=== PATIENT | male | born 1965 | race Caucasian/White ===

== ENCOUNTER 2020-06-21 08:28 | Outpatient (RCR) | payer OTHER, SELFPAY | END 2020-06-21 23:59 | LOC: IMMUN 08:28 | PROVIDERS: PCP Student in an Organized Health Care Education/Training Program; Visit Provider Family Medicine | DX: Z23 Encounter for immunization (principal) | CPT/HCPCS: 0011A; 0012A ==

== ENCOUNTER 2020-12-05 15:20 | Emergency (ER) | payer OTHER, SELFPAY ==
[2020-12-05 15:21] VITALS: BP 108/71; PULSE 87; RESP 18; TEMP 36.2; O2SAT 97; BMI 44.4
--- NOTE | 2020-12-05 16:02 | EX.ED.VIS.EY ---
HPI History of Present Illness Chief Complaint: Eye Problem Informant: patient Onset/Context/Timing Location: Left Eye Onset: Days (Injury occurred 2 days ago) Context: Sudden Onset Timing: Continuous Current Severity: Moderate Maximum Severity: Severe Worsened by: Light Relieved by: Nothing Associated Symptoms Associated Symptoms - Eyes: Crusting, Drainage, Eyelid swelling, Foreign body sensation, Matting, Photophobia and Redness Visual Changes: left: Blurred vision History of injury: Yes, Foreign body and - (Metal pounding on metal, patient working under vehicle) Visual correction: Glasses Narrative Narrative: Patient is a 55-year-old male who was working on a car. He has history of metal pounding on metal. He felt a piece of brush/foreign body went into his eye 2 days ago. His eye pain is gotten worse. He does report matting of his eyelashes and drainage from his eyes. His vision is cloudy but improves with blinking. He does complain of irritation nasal portion of the eye. He denies loss of vision or double vision. He denies fever, chills night sweats. He denies facial swelling. He denies pain with movement of his eyes. He does report light sensitivity. He does have history of diabetes and hypercholesterolemia. Prior similar symptoms: No Recent Illness/Hospitalization: No [facility] Medical History Diabetes mellitus Hyperlipidemia Home Medications atorvastatin 40 mg PO DAILY 12/05/20 [History Last Taken Unknown] ciprofloxacin HCl 1 drp LEFT EYE Q2H 2 Days ml 12/05/20 [Rx Last Taken Unknown] metformin 1,000 mg PO BID 12/05/20 [History Last Taken Unknown] semaglutide [Ozempic] 4 mg SUBCUT QWEEK 12/05/20 [History Last Taken Unknown] sertraline 100 mg PO DAILY 12/05/20 [History Last Taken Unknown] tamsulosin 0.4 mg PO DAILY 12/05/20 [History Last Taken Unknown] Allergy/AdvReac Type Severity Reaction Status Date / Time No Known Allergies Allergy Verified 12/05/20 15:22 Surgical History S/P carpal tunnel release Social History (Updated 12/05/20 @ 16:[address] Ozzie Omalley MD) Smoking Status: Never smoker alcohol intake: current alcohol intake frequency: holidays/special occasions only substance use type: does not use ROS ROS ED Constitutional Constitutional ED: Denies chills, fever(s), subjective or sweats Eyes Eyes: Reports blurry vision and change in vision; Denies other ENT ENT ED: Denies ear pain, rhinorrhea or sore throat Gastrointestinal Gastrointestinal: Denies nausea or vomiting Genitourinary Genitourinary ED: Denies urinary frequency Musculoskeletal Musculoskeletal: Denies back pain or neck pain Integumentary Denies rash Neurologic Neurologic: Denies headache(s) Endocrine Endocrinology: Denies polydipsia, polyphagia or polyuria Hematologic/Lymphatic Hematologic/Lymphatic: Denies easy bleeding or easy bruising EXAM Physical Exam Const Vital Signs: 12/05/20 15:21 Temperature 97.1 F L Temperature Source Temporal Pulse Rate 87 Respiratory Rate 18 Blood Pressure 108/71 Blood Pressure Mean 83 Pulse Ox 97 Oxygen Delivery Method Room Air Positive well nourished, well developed and obese General Appearance ED: well developed Nutritional Appearance: obese HEENT atraumatic; Negative for tenderness Nose: external nose normal and nares normal Eyes General Eye ED: Yes normal light reflex; Negative for enophthalmos, exophthalmos, proptosis, pale conjunctiva or scleral icterus Visual Field: No peripheral vision loss, No central vision loss and No left visual field cut Alignment: alignment normal Periorbital: periorbital findings normal Eyelid: eyelids abnormal right upper eyelid (There is swelling of the upper and lower lid. Lower is more swollen.) and right lower eyelid Conjunctiva: conjunctiva abnormal left Details: injection Sclera: sclera normal Pupil: PERRL and accommodation reflex normal EOM: Negative for nystagmus Neck no lymphadenopathy, supple and no JVD General: tenderness Resp normal respiratory effort and clear to auscultation bilaterally Cardio regular rate, regular rhythm, S1 normal heart sound, S2 normal heart sound and no murmurs Neuro oriented x3 and CN's II-XII intact bilaterally Sensorium / Orientation: alert Psych Psych Narrative: Mood and affect are normal Skin no wounds Lesions: no lesions Rashes: no rashes MDM MDM MDM Narrative Medical decision making narrative: No obvious foreign body was noted with direct ophthalmoscope visualization. With history of metal pounding on metal need to evaluate for penetrating wound and retained foreign body. Orbital x-rays were obtained. I was anesthetized tetracaine and stained with foreseen. Will perform slit-lamp examination. Tetanus will be updated if needed. Patient I was anesthetized tetracaine and stained with foreseen. Use of slit lamp reveals rust ring/small metallic foreign body cornea left eye 3 to 4 mm from the limbal border at 5:00. This was easily removed using ophthalmic bur with direct visualization using the slit lamp. Patient tolerated procedure well. Radiography Diagnostic Testing: Orbital x-rays reveal no evidence of foreign body. Procedures Other Procedures Procedure(s): Removal of metallic foreign body with rust ring in total using ophthalmic bur under direct visualization with slit lamp Discharge Plan Triage Chief Complaint: Eye Problem ED Provider: Ozzie Omalley Dx/Rx/DC Orders Clinical Impression: Foreign body in cornea, left eye, initial encounter, Acute conjunctivitis of left eye Instructions: ED Conjunctivitis, Nonspecific, ED Corneal Foreign Body, Removed Prescriptions: New ciprofloxacin HCl 0.3 % drops 1 drp LEFT EYE Q2H 2 Days RF: 0 No Action atorvastatin 40 mg tablet 40 mg PO DAILY RF: 0 sertraline 100 mg tablet 100 mg PO DAILY RF: 0 tamsulosin 0.4 mg capsule 0.4 mg PO DAILY RF: 0 metformin 500 mg tablet extended release 24 hr 1,000 mg PO BID RF: 0 Ozempic 1 mg/dose (4 mg/3 mL) pen injector 4 mg SUBCUT QWEEK RF: 0 Primary Care Provider: Dread Castle Referrals: Evgeny Gonzalez MD [STAFF PHYSICIAN] - 1 Day for another exam (Patient with metallic foreign body. Foreign body and rust ring removed in total. Patient has conjunctivitis. Placed on ophthalmic drops will need seen in 24 to 48 hours) Dread Castle DO [Primary Care Provider] - Disposition Disposition: Home, Self Care
[2020-12-05] MEDS: Fluorescein 1 MG STRIP 1 STRIP OPHTHALMIC (16:11)
--- NOTE | 2020-12-05 16:25 | RAD_ITS ---
STUDY: X-RAY - ORBITS REASON FOR EXAM: Male, 55 years old. Eye pain, metal pounding on metal TECHNIQUE: 3 view(s) of the orbits were obtained. COMPARISON: None. FINDINGS: Normal bilateral orbits without a metallic orbital foreign body. Normal visualized facial bones. Normal paranasal sinuses. Radiopaque dental fillings noted. The soft tissue structures are unremarkable. RAD/Orbits for Foreign Body IMPRESSION: No demonstrated metallic orbital foreign body. The patient is cleared for an MRI examination. Electronically Signed: Capo Parsons MD at 16:40 EDT , Service support ,
[2020-12-05] MEDS: Tetracaine 0.5% Ophthalmic Bottle OPHTHALMIC (16:30)
[2020-12-05 17:37] VITALS: BP 129/84; PULSE 78; RESP 16; O2SAT 98
== END 2020-12-05 17:38 | disposition home or self-care (01) ==
PROVIDERS: Emergency Provider Emergency Medicine; PCP Student in an Organized Health Care Education/Training Program
DX: T15.02XA Foreign body in cornea, left eye, initial encounter (principal); H10.32 Unspecified acute conjunctivitis, left eye; X58.XXXA Exposure to other specified factors, initial encounter; Y93.9 Activity, unspecified; Y92.9 Unspecified place or not applicable; Y99.9 Unspecified external cause status; E11.9 Type 2 diabetes mellitus without complications; E78.00 Pure hypercholesterolemia, unspecified; E78.5 Hyperlipidemia, unspecified; E66.9 Obesity, unspecified; Z79.84 Long term (current) use of oral hypoglycemic drugs; Z79.899 Other long term (current) drug therapy
CPT/HCPCS: 70030; 99283

== ENCOUNTER → 2020-12-11 08:31 | Outpatient (CLI) | payer OTHER, SELFPAY ==
[2020-12-05 15:21] VITALS: BMI 44.4
--- NOTE | 2020-12-10 | LES_PTH ---
PATIENT: KAT POWELL LOC: [facility] U#:[id number] AGE/SX: 60/M ROOM: RE12/11/[address]: Dr. Kal Caballero MD : 1965 BED: DIS: SPEC #: [id number] RECD: 12/10/20 17:50 STATUS: EAN REMohit #: [id number] ALIZA: 12/10/20 00:[address]: Kal Caballero DEPT: SURGICAL PATHOLOGY RECD BY: Sekou Reyes ENTERED: 12/11/20 12:01 SP TYPE: Lesion OTHR DR: Dr. Dread Castle, DO Tissues: Skin of eyelid, NOS Procedures: Surgery Specimen Level IV HEADER OPERATION: Lesion removal left upper lid PRE-OP DIAGNOSIS: Present x2 years, enlarging TISSUE SUBMITTED: Lesion removal left upper lid MICROSCOPIC DIAGNOSIS Lesion of left upper eyelid, biopsy: Consistent with seborrheic keratosis, mildly inflamed. AM:richelle 12/12/2020 MICROSCOPIC DESCRIPTION Slides are reviewed. GROSS DESCRIPTION Received in fixative is one container labeled with the patient's name and designated left upper lid. The specimen consists of an irregular fragment of smith tissue measuring 0.1 x <0.1 x <0.1 cm. The specimen is totally submitted in one cassette. / AM:richelle 12/11/20 TC:5 CPT: 17535
== END ==
PROVIDERS: PCP Student in an Organized Health Care Education/Training Program; Referring Provider Ophthalmology; Visit Provider Ophthalmology
DX: L82.0 Inflamed seborrheic keratosis (principal)
CPT/HCPCS: 88305

== ENCOUNTER 2021-07-29 10:44 | Emergency (ER) | payer OTHER, SELFPAY ==
[2021-07-29 10:45] VITALS: BP 123/78; PULSE 82; RESP 18; TEMP 36.8; O2SAT 97; BMI 45.1
--- NOTE | 2021-07-29 11:43 | EDS_ITS ---
HPI History of Present Illness Chief Complaint: Laceration Detail of Chief Complaint: Forehead laceration Informant: patient and spouse/S.O. Onset/Context/Timing Onset: Hours Mechanism/Context: Blunt Injury Location: Forehead midline near hairline Current Severity: Mild Maximum Severity: Mild Worsened by: Blunt trauma Relieved by: Nothing Associated Symptoms Associated Symptoms: Negative for Parasthesias, Weakness, Loss of function, Inability to ambulate, Loss of consciousness and Amnesia Narrative Narrative: Patient is a 56-year-old male who walked into a trailer hitch. He sustained laceration to his forehead. Laceration is 2.1 cm in length. There is minimal bleeding. There is no palpable depression. Patient denies loss of conscious. He is not amnestic. Denies ringing in ears decreased hearing. Denies trouble with vision. He denies any paresthesia, anesthesia or motor weakness upper lower extremity. He denies neck pain. Tetanus Immunization: <5 years Prior similar symptoms: Yes Recent Illness/Hospitalization: No PFSH PFSH Medical History Diabetes mellitus Hyperlipidemia Home Medications atorvastatin 40 mg PO DAILY 12/05/20 [History Last Taken Unknown] ciprofloxacin HCl 1 drp LEFT EYE Q2H 2 Days ml 12/05/20 [Rx Last Taken Unknown] metformin 1,000 mg PO BID 12/05/20 [History Last Taken Unknown] semaglutide [Ozempic] 4 mg SUBCUT QWEEK 12/05/20 [History Last Taken Unknown] sertraline 100 mg PO DAILY 12/05/20 [History Last Taken Unknown] tamsulosin 0.4 mg PO DAILY 12/05/20 [History Last Taken Unknown] Allergy/AdvReac Type Severity Reaction Status Date / Time No Known Allergies Allergy Verified 07/29/21 10:57 Surgical History S/P carpal tunnel release Social History (Updated 07/29/21 @ 11:[address] Ozzie Omalley MD) household members: spouse Smoking Status: Never smoker alcohol intake: current alcohol intake frequency: holidays/special occasions only substance use type: does not use ROS ROS ED Eyes Eyes: Denies blurry vision or change in vision ENT ENT ED: Denies ear pain, rhinorrhea or sore throat Gastrointestinal Gastrointestinal: Denies nausea or vomiting Musculoskeletal Musculoskeletal: Denies arthralgias, back pain, myalgias or neck pain Integumentary Reports other Details: Forehead laceration ; Denies abscess or rash Neurologic Neurologic: Denies headache(s) or paresthesias Hematologic/Lymphatic Hematologic/Lymphatic: Denies easy bleeding or easy bruising EXAM Physical Exam Const Vital Signs: 07/29/21 10:45 Temperature 98.2 F Temperature Source Temporal Pulse Rate 82 Respiratory Rate 18 Blood Pressure 123/78 H Blood Pressure Mean 93 Pulse Ox 97 Oxygen Delivery Method Room Air Positive well nourished, well developed and obese General Appearance ED: well developed and NAD Nutritional Appearance: obese HEENT Reports TM's clear HEENT Narrative: Patient has forehead laceration which will require repair. There is no palp depression. trauma; Negative for tenderness Nose: Negative for septum abnormal Tympanic Membrane ED: Yes TM's clear Eyes PERRL and EOMs intact bilaterally Neck full ROM General: Negative for tenderness Resp normal respiratory effort Cardio regular rhythm Rate: regular rate Neuro oriented x3, CN's II-XII intact bilaterally and no sensory deficits noted [place] Coma Scale: document GCS findings Spontaneous Obeys Commands Oriented 15 Sensorium / Orientation: alert Motor Exam: strength 5/5 throughout Psych mental status grossly normal and thought process normal Skin no jaundice Skin Narrative: Forehead laceration PROC Procedures Other Procedures Procedure(s): Wounds was cleansed. The wound was Nestabs by bilateral supraorbital and supratrochlear nerve block using 1% lidocaine by local infiltration. Total of 3 cc was infiltrated. After 15 minutes patient was assessed and had no sensation. Wound was cleansed. Simple rub sutures were placed. Bleeding is under control. MDM MDM MDM Narrative Medical decision making narrative: Patient has laceration which will require repair. Please read procedure note Discharge Plan Triage Chief Complaint: Laceration ED Provider: Ozzie Omalley Dx/Rx/DC Orders Clinical Impression: Forehead laceration, Contusion of forehead Instructions: ED Laceration, Chin, Suture or Tape, ED Scar Tips to Minimize Prescriptions: No Action atorvastatin 40 mg tablet 40 mg PO DAILY RF: 0 sertraline 100 mg tablet 100 mg PO DAILY RF: 0 tamsulosin 0.4 mg capsule 0.4 mg PO DAILY RF: 0 metformin 500 mg tablet extended release 24 hr 1,000 mg PO BID RF: 0 Ozempic 1 mg/dose (4 mg/3 mL) pen injector 4 mg SUBCUT QWEEK RF: 0 ciprofloxacin HCl 0.3 % drops 1 drp LEFT EYE Q2H 2 Days RF: 0 Primary Care Provider: Dread Castle Referrals: [facility] [GROUP OF PHYSICIANS] - 5 Days for suture removal Dread Castle, [Primary Care Provider] - Activity Restrictions/Additional Instructions: 1. Keep wound clean and dry 2. Cleaned with peroxide and Q-tip then apply bacitracin ointment 3. Sun light will make your laceration wound appeared no more noticeable Disposition Disposition: Home, Self Care
[2021-07-29] MEDS: Lidocaine 1% (20 ml mdv) 20 ML Vial INFILT (12:45)
== END 2021-07-29 13:11 | disposition home or self-care (01) ==
PROVIDERS: Emergency Provider Emergency Medicine; PCP Student in an Organized Health Care Education/Training Program; Visit Provider Emergency Medicine
DX: S01.81XA Laceration without foreign body of other part of head, initial encounter (principal); E11.9 Type 2 diabetes mellitus without complications; E78.5 Hyperlipidemia, unspecified; Z79.84 Long term (current) use of oral hypoglycemic drugs; Z79.899 Other long term (current) drug therapy; W22.8XXA Striking against or struck by other objects, initial encounter; Y93.01 Activity, walking, marching and hiking; Y99.0 Civilian activity done for income or pay
CPT/HCPCS: 12011; 99282